=== PATIENT | male | born 1985 | race Caucasian/White ===

== ENCOUNTER 2021-04-08 01:04 | Inpatient (IN) | payer MEDICAID, OTHER ==
[~2021-04-08] VITALS: Ht 175.3 cm; Wt 74.4 kg
[~2021-04-08 01:04] MED LIST: AMLO5TAB66 PO; FLUO10CA24 PO; GABA-1181 PO; HYD50 PO; TRAZ-252 PO
[2021-04-08 01:59] LABS: BASOPHILS % (AUTO) 0.5 % (0.0-2.0); EOSINOPHILS % (AUTO) 0.1 % (1.0-6.0); HEMATOCRIT 42.8 % (41-53); HEMOGLOBIN 14.3 g/dL (13.5-17.5); LYMPHOCYTES # (AUTO) 1.2 K/uL (1.0-4.8); LYMPHOCYTES % (AUTO) 9.8 % (22.0-44.0); MEAN CORPUSCULAR HEMOGLOBIN 32.9 pg (26.0-34.0); MEAN CORPUSCULAR HGB CONC 33.5 G/dL (31.0-37.0); MEAN CORPUSCULAR VOLUME 98 fL (80-100); MONOCYTES # (AUTO) 0.6 K/uL (0.1-1.0); MONOCYTES % (AUTO) 5.3 % (2.0-9.0); NEUTROPHILS % (AUTO) 84.3 % (40.0-70.0); PLATELET COUNT (AUTO) 133 K/uL (150-450); RED BLOOD CELL COUNT(AUTO) 4.37 MIL/uL (4.50-5.90)
[2021-04-08] MEDS ORDERED: LORazepam 1 MG TABLET PO ONE (02:00)
[2021-04-08] MEDS ORDERED: ONDANSETRON HCL 4 MG TABLET PO ONE (02:00)
[2021-04-08 02:03] LABS: COVID AG,FIA SOURCE NASOPHARYNGEAL
[2021-04-08 02:05] LABS: ANION GAP 8 mmol/L (8-16); CALCIUM, TOTAL 8.1 mg/dL (8.8-10.5); CARBON DIOXIDE 33 mmol/L (22-29); CHLORIDE 99 mmol/L (98-107); CREATININE 0.97 mg/dL (0.60-1.30); GLOMERULAR FILTR. RATE CALC > 60 mL/min (>60); GLUCOSE,RANDOM 128 mg/dL (70-110); POTASSIUM 3.9 mmol/L (3.5-5.1); SODIUM SERUM 140 mmol/L (136-145); UREA NITROGEN, BLOOD 4 mg/dL (7-18)
[2021-04-08 02:11] LABS: ALANINE AMINOTRANSFERASE 180 U/L (12-78); ALBUMIN 3.9 g/dL (3.4-5.0); ALKALINE PHOSPHATASE 99 U/L (46-116); ASPARTATE AMINOTRANSFERASE 171 U/L (15-37); BILIRUBIN,TOTAL 0.5 mg/dL (0.1-1.0); TOTAL PROTEIN, SERUM 7.9 g/dL (6.4-8.2)
[2021-04-08] MEDS ORDERED: HALOPERIDOL 5 MG TABLET PO PRN (02:30)
[2021-04-08] MEDS ORDERED: ZOLPIDEM TARTRATE 10 MG TABLET PO PRN (02:30)
[2021-04-08] MEDS: LORazepam 2 MG TABLET PO PRN ×5 (05:50→20:29)
[2021-04-08] MEDS ORDERED: ONDANSETRON HCL 4 MG/2 ML VIAL IM PRN (17:54)
[2021-04-08 19:10] VITALS: BP 137/99
[2021-04-08 19:23] LABS: APPEARANCE,URINE CLOUDY (CLEAR); GLUCOSE, URINE (UA) NEGATIVE (NEGATIVE); KETONES,URINE 15 mg/dL (NEGATIVE); LEUKOCYTE ESTERASE ,URINE NEGATIVE (NEGATIVE); NITRATE,URINE NEGATIVE (NEGATIVE); OCCULT BLOOD,URINE NEGATIVE (NEGATIVE); PROTEIN,URINE POS 1+ (NEGATIVE)
[2021-04-08 19:29] LABS: AMPHET/METH SCREEN,URINE NEGATIVE (NEGATIVE); BARBITURATE SCREEN, URINE NEGATIVE (NEGATIVE); BENZODIAZEPINES SCREEN,URINE POSITIVE (NEGATIVE); CANNABINOID SCREEN,URINE POSITIVE (NEGATIVE); COCAINE SCREEN,URINE NEGATIVE (NEGATIVE); METHADONE SCREEN, URINE NEGATIVE (NEGATIVE); OPIATE SCREEN,URINE NEGATIVE (NEGATIVE)
[2021-04-08 19:30] LABS: BILIRUBIN,URINE PRELIM. POSITIVE (NEGATIVE); PHENCYCLIDINE SCREEN,URINE NEGATIVE (NEGATIVE)
[2021-04-08 20:00] LABS: BACTERIA,URINE None Seen /HPF (None Seen); RBC,URINE None Seen /HPF (0-2); SQUAMOUS EPITHELIAL CELL,UR Rare /LPF (None Seen); WBC,URINE None Seen /HPF (0-5)
[2021-04-08 20:10] VITALS: BP 145/86
[2021-04-08 20:45] VITALS: BP 145/86
[2021-04-08 21:10] VITALS: BP 143/97
[2021-04-08 22:10] VITALS: BP 148/98
[2021-04-08 23:02] VITALS: BP 145/92
[2021-04-09] MEDS: LORazepam 2 MG TABLET PO PRN (02:58)
[2021-04-09 03:28] VITALS: BP 145/90
[2021-04-09] MEDS ORDERED: LORazepam 2 MG TABLET PO PRN (07:00)
[2021-04-09] MEDS ORDERED: GuaiFENesin/D-METHORPHAN [SUGAR-FREE] 200-20MG/10 ML SYRUP UDCUP PO PRN (07:30)
[2021-04-09] MEDS ORDERED: MAGNESIUM HYDROXIDE SUSPENSION 30 ML UDCUP PO PRN (07:30)
[2021-04-09] MEDS ORDERED: ACETAMINOPHEN 325 MG TABLET PO PRN (07:30)
[2021-04-09] MEDS ORDERED: DOCUSATE SODIUM 100 MG CAPSULE PO PRN (07:30)
[2021-04-09] MEDS ORDERED: ALBUTEROL SULFATE HFA 90 MCG/PUFF 8 GM INHALER IH PRN (07:30)
[2021-04-09] MEDS ORDERED: PETROLATUM,WHITE 28 GM JELLY TP PRN (07:30)
[2021-04-09] MEDS ORDERED: IBUPROFEN 400 MG TABLET PO PRN (07:30)
[2021-04-09] MEDS ORDERED: CloNIDine HCL 0.1 MG TABLET PO PRN (07:30)
[2021-04-09] MEDS ORDERED: NICOTINE 14 MG/24 HOUR PATCH TD PRN (07:30)
[2021-04-09] MEDS ORDERED: MAG HYDROX/AL HYDROX/SIMETH ES 30 ML SUSPENSION UDCUP PO PRN (07:30)
[2021-04-09 08:00] VITALS: BP 157/114
[2021-04-09] MEDS: AmLODIPine BESYLATE 5 MG TABLET PO SCH (08:10)
[2021-04-09] MEDS: LORazepam 2 MG TABLET PO SCH ×4 (08:11→21:11)
[2021-04-09] MEDS: LOPERAMIDE HCL 2 MG CAPSULE PO PRN (08:12)
[2021-04-09 11:00] VITALS: BP 151/101
[2021-04-09 14:45] VITALS: BP 148/99
[2021-04-09 16:00] VITALS: BP 153/96
[2021-04-09 22:59] VITALS: BP 150/90
[2021-04-10] VITALS (8 sets, daily range): BP systolic 134–150; BP diastolic 96–113
[2021-04-10] MEDS: LORazepam 2 MG TABLET PO PRN (04:02)
[2021-04-10] MEDS: AmLODIPine BESYLATE 5 MG TABLET PO SCH (08:00)
[2021-04-10] MEDS: LORazepam 2 MG TABLET PO SCH ×4 (08:00→21:19)
[2021-04-10] MEDS ORDERED: CYANOCOBALAMIN 1,000 MCG/ML VIAL IM ONE (11:30)
[2021-04-10] MEDS: FOLIC ACID 1 MG TABLET PO SCH (11:42)
[2021-04-10] MEDS: MULTIVITAMINS WITH MINERALS, THERAPEUTIC TABLET PO SCH (11:42)
[2021-04-10] MEDS: FLUoxetine HCL 10 MG CAPSULE PO SCH (11:43)
[2021-04-10] MEDS: GABAPENTIN 300 MG CAPSULE PO SCH ×2 (13:05→17:28)
[2021-04-10] MEDS: LOPERAMIDE HCL 2 MG CAPSULE PO PRN (13:07)
[2021-04-10] MEDS: THIAMINE 100 MG TABLET PO SCH (17:27)
[2021-04-10] MEDS: TraZODone HCL 50 MG TABLET PO SCH (21:19)
[2021-04-11 05:21] VITALS: BP 142/103
[2021-04-11] MEDS ORDERED: LORazepam 1 MG TABLET PO PRN (07:00)
[2021-04-11 08:15] VITALS: BP 152/107
[2021-04-11] MEDS: MULTIVITAMINS WITH MINERALS, THERAPEUTIC TABLET PO SCH (09:11)
[2021-04-11] MEDS: THIAMINE 100 MG TABLET PO SCH ×2 (09:11→17:45)
[2021-04-11] MEDS: AmLODIPine BESYLATE 5 MG TABLET PO SCH (09:12)
[2021-04-11] MEDS: GABAPENTIN 300 MG CAPSULE PO SCH ×3 (09:12→17:45)
[2021-04-11] MEDS: LORazepam 1 MG TABLET PO SCH ×4 (09:12→21:08)
[2021-04-11] MEDS: FOLIC ACID 1 MG TABLET PO SCH (09:12)
[2021-04-11] MEDS: FLUoxetine HCL 10 MG CAPSULE PO SCH (09:13)
[2021-04-11 16:18] VITALS: BP 140/111
[2021-04-11 17:17] VITALS: BP 140/111
[2021-04-11] MEDS: TraZODone HCL 50 MG TABLET PO SCH (21:08)
[2021-04-12] VITALS (7 sets, daily range): BP systolic 102–153; BP diastolic 86–107
[2021-04-12] MEDS: GABAPENTIN 300 MG CAPSULE PO SCH ×3 (08:15→16:47)
[2021-04-12] MEDS: MULTIVITAMINS WITH MINERALS, THERAPEUTIC TABLET PO SCH (08:15)
[2021-04-12] MEDS: THIAMINE 100 MG TABLET PO SCH ×2 (08:15→16:47)
[2021-04-12] MEDS: FOLIC ACID 1 MG TABLET PO SCH (08:15)
[2021-04-12] MEDS: NALTREXONE HCL 50 MG TABLET PO SCH (08:15)
[2021-04-12] MEDS: AmLODIPine BESYLATE 5 MG TABLET PO SCH (08:15)
[2021-04-12] MEDS: FLUoxetine HCL 10 MG CAPSULE PO SCH (08:16)
[2021-04-12] MEDS: LORazepam 2 MG TABLET PO PRN (08:17)
[2021-04-12] MEDS: TraZODone HCL 50 MG TABLET PO SCH (20:57)
[2021-04-12] MEDS: LORazepam 1 MG TABLET PO PRN (20:57)
[2021-04-13 03:41] VITALS: BP 136/85
[2021-04-13] MEDS: LORazepam 1 MG TABLET PO PRN (04:24)
[2021-04-13] MEDS ORDERED: FLUO10CA24 PO (07:03)
[2021-04-13] MEDS ORDERED: GABA-1181 PO (07:03)
[2021-04-13] MEDS ORDERED: TRAZ-252 PO (07:03)
[2021-04-13] MEDS ORDERED: AMLO5TAB66 PO (07:03)
[2021-04-13 08:20] VITALS: BP 149/115
[2021-04-13] MEDS: FOLIC ACID 1 MG TABLET PO SCH (08:31)
[2021-04-13] MEDS: NALTREXONE HCL 50 MG TABLET PO SCH (08:32)
[2021-04-13] MEDS: AmLODIPine BESYLATE 5 MG TABLET PO SCH (08:32)
[2021-04-13] MEDS: GABAPENTIN 300 MG CAPSULE PO SCH ×2 (08:32→13:02)
[2021-04-13] MEDS: MULTIVITAMINS WITH MINERALS, THERAPEUTIC TABLET PO SCH (08:32)
[2021-04-13] MEDS: FLUoxetine HCL 10 MG CAPSULE PO SCH (08:32)
[2021-04-13] MEDS: THIAMINE 100 MG TABLET PO SCH (08:32)
[2021-04-13] MEDS ORDERED: NALT50TA6 PO (10:50)
== END 2021-04-13 13:37 | disposition home or self-care (01) | DRG 751 ==
LOC: EMS 01:05 → 3EI 02:19
DX: F33.2 Major depressive disorder, recurrent severe without psychotic features (principal); R45.851 Suicidal ideations; D72.829 Elevated white blood cell count, unspecified; Z20.822 Contact with and (suspected) exposure to COVID-19; E78.5 Hyperlipidemia, unspecified; F41.9 Anxiety disorder, unspecified; Y90.8 Blood alcohol level of 240 mg/100 ml or more; F10.20 Alcohol dependence, uncomplicated
CPT/HCPCS: 80053; 80061; 81001; 81003; 85025; 99285; G0480; J2405; J3420; Q0162